=== PATIENT | female | born 1965 | race Caucasian/White ===

== ENCOUNTER 2018-07-16 17:36 | Observation (INO) | payer BC ==
[~2018-07-16 17:36] MED LIST: ISOVUE-370 76%-LOCM 1 ML ONE
[2018-07-16 18:33] LABS: #Basophils 0.1 thou/uL (0.0-0.2); #Eosinphils 0.1 thou/uL (0.0-0.7); #Lymphocytes 3.9 thou/uL (1.20-3.40); #Monocytes 0.7 thou/uL (0.11-0.59); #Neutrophils 5.9 thou/uL (1.40-6.50); %Basophils 1.2 % (0.0-1.0); %Eosinophils 1.4 % (0.0-10.0); %Lymphocytes 36.1 % (21.0-51.0); %Monocytes 6.4 % (0.0-10.0); Hemoglobin 16.5 g/dL (12.0-16.0); Mean Corpuscular HGB CONC 33.7 g/dL (32.0-36.0); Mean Corpuscular Hemoglobin 28.7 pg (27.0-31.0); Mean Corpuscular Volume 85.3 fL (78.0-98.0); Mean Platelet Volume 6.9 fL (7.4-10.4); Platelet Count 366 thou/uL (130-400); RBC Distribution Width 11.3 % (11.5-14.5); Red Blood Cell (RBC) Count 5.72 mill/uL (4.20-5.40); White Blood Cell (WBC) Count 10.7 thou/uL (4.8-10.8)
[2018-07-16 18:54] LABS: CKMB 0.5 ng/mL (0-6.6); Troponin I Less than 0.010 ng/mL (< 0.028)
[2018-07-16 18:55] LABS: ALT (SGPT) 25 U/L (8-55); AST (SGOT) 23 U/L (5-34); Albumin 4.4 g/dL (3.5-5.0); Alkaline Phosphatase 68 U/L (40-150); Anion Gap 15 mmol/L (10-20); BUN (Urea Nitrogen) 11 mg/dL (9.8-20.1); Bilirubin, Total 0.3 mg/dL (0.2-1.2); CK (CPK) 40 U/L (29-168); Calc. Creatinine Clearance 0 mL/min (70-130); Carbon Dioxide 25 mmol/L (22-29); Chloride 101 mmol/L (98-107); Estimated GFR-MDRD 58; Globulin 4.2 g/dL (2.4-3.5); Glucose 107 mg/dL (70-105); Potassium 4.5 mmol/L (3.5-5.1); Protein, Total 8.6 g/dL (6.0-8.3); Sodium 136 mmol/L (136-145)
--- NOTE | 2018-07-16 21:52 | CT ---
NONCONTRAST HEAD CT: 07/16/18 HISTORY: Altered mental status. Visual field abnormality. COMPARISON: None. FINDINGS: No parenchymal hemorrhage. No extra-axial hematoma. No midline shift. Basilar cisterns are patent. Br ain volume, age appropriate. Cortical pereira-white matter differentiation is preserved. Ventricles and sulci are patent and symmetric. Adequate aeration of the sinuses and mastoid air cells . Intact calvarium. IMPRESSION: No acute intracranial process. POS: [facility]
--- NOTE | 2018-07-16 21:57 | CT ---
CTA [place] OF [place] WITH 3D VOLUME RENDERING WITH CONTRAST 07/16/18 INDICATION: Visual disturbances. Altered mental status. History of migraine headaches. FINDINGS: The imaged FILIBERTO, MCA and TELEVISION SCRIPT WRITER bilaterally reveal no significant abnormality. The terminal ICA, bilater ally, are patent. Imaged vertebrobasilar system reveals no significant abnormality. IMPRESSION: Unremarkable [place] of [place] CTA examination. POS: [facility]
[2018-07-17 02:38] VITALS: BMI 27.8
[2018-07-17] MEDS ORDERED: hydrALAZINE 20 MG/ML VIAL SLOW IVP PRN (10:09)
--- NOTE | 2018-07-17 12:22 | ULT ---
BILATERAL CAROTID DUPLEX ULTRASOUND: DATE: 07/17/18 HISTORY: TIA. TECHNIQUE: [place] scale ultrasound with color flow and spectral Doppler imaging of the extracranial carotid artery systems performed. FINDINGS: There is a small amount of plaque formation in the right carotid bulb. The peak systolic velocity in the right ICA measures 85 cm/second with a systolic ratio of 1.13. The peak systolic velocity in the left ICA measures 87 cm/second with a systolic ratio of 1.07. Flow in both vertebral arteries remains antegrade. Incidental note is made of a 1.6 x 1.0 x 1.0 cm lymph node in the right neck. IMPRESSION: 1. No evidence of hemodynamically significant stenosis in either ICA. 2. Enlarged right cervical lymph node. POS: [facility]
--- NOTE | 2018-07-17 13:24 | MRI ---
MRI BRAIN WITHOUT CONTRAST: Date: 07/17/18 HISTORY: Visual disturbances, altered mental status, migraine headaches, TIA. FINDINGS: Correlation is made with the previous day's CT scan. No restricted diffusion is seen. No evidence of infarct, hemorrhage, midline shift, or abnormal extra -axial fluid collections are seen. The ventricular size is normal and the basilar cisterns are patent . No signal abnormalities are seen on the highly sensitive FLAIR images. No tonsillar herniation is s een. The visualized paranasal sinuses and mastoid air cells are well aerated. IMPRESSION: Normal exam. POS: [facility]
[2018-07-17 16:06] VITALS: BP 111/78; TEMP 98.4
--- NOTE | 2018-07-17 17:15 | HP ---
PRIMARY CARE PROVIDER: Michael Bernabe D.O. CHIEF COMPLAINT: Vision changes. HISTORY OF PRESENT ILLNESS: Ms. Almanza is a pleasant 53-year-old lady who was seen at [facility] on 07/17/2018. 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 She is followed by an wood piler for the [facility]. She also reports a history of migraine with aura, aura usually consists of flashing lights. She also reports having intact peripheral vision, but loss of central vision as part of her aura. Somet imes she has aura, but no headaches. At other times, she has aura with headaches. Two weeks ago, she had an episode where her vision was skewed. She describes it as pereira field at the top half of her vision and colored skewed vision in the bottom half. She reports that these episode s last very few seconds and she is unable to tell if it is in one eye or both eyes. She also reports feeling disoriented after the first episode and tried not to fall. She did not fall. She had a second episode 2 days ago. She went to see an edge banding machine offbearer yesterday and was reassured that everything was fine with her ophthalmologic exam. Arrangements are being made to obtain 2D echo cardiogram as part of stroke workup. Yesterday after seeing the edge banding machine offbearer, she went to eat din ner and had another episode. This lasted about 30 seconds. She came to the emergency room because s he was concerned about stroke. REVIEW OF SYSTEMS: All other systems reviewed and found to be negative. PAST MEDICAL HISTORY: Hypothyroidism, gastroesophageal reflux disease, gout. PAST SURGICAL HISTORY: Chula fundoplication for hiatal hernia, cholecystectomy, hysterectomy, and r ight knee surgery. SOCIAL HISTORY: The patient denies recreational drug use or tobacco use. Uses alcohol rarely. FAMILY HISTORY: Cerebrovascular accident and Parkinson's disease in her paternal grandmother as well as maternal aunt. ALLERGIES: CLAVULANIC ACID, MOXIFLOXACIN, SULFA, CEPHALOSPORINS, AMOXICILLIN, CECLOR, ERYTHROMYCIN B ASE, LEVOFLOXACIN and PENICILLIN. CURRENT MEDICATIONS: Bumetanide 1 mg daily, vitamin D3 5000 units daily, estradiol 0.1 mg transderma lly daily, fexofenadine 60 mg tablet daily, Flonase nasal spray, gabapentin 100 mg capsules, dose to be confirmed, liothyronine 5 mcg daily, magnesium 500 mg daily, omeprazole 20 mg daily, DHEA 25 mg da [place], spironolactone 100 mg daily, and vitamin B complex 100 mg daily. PHYSICAL EXAMINATION: GENERAL: On examination, Ms. Almanza is awake and alert, not in acute distress. VITAL SIGNS: Blood pressure is 111/73, pulse 98, respiratory rate 16, and oxygen saturation 98% on r oom air. She is afebrile. EYES: No scleral icterus. No conjunctival pallor. ENT: Moist mucosal membranes, no oropharyngeal erythema or exudates. NECK: Supple, nontender, trachea is midline. RESPIRATORY: Accessory muscles of breathing are not active. Chest wall movements are symmetric bila terally. LUNGS: Clear to auscultation without wheeze, rhonchi or crepitations. CARDIOVASCULAR: S1 and S2 are heard, regular. Peripheral pulses palpable. No carotid bruit, no per icardial rub. ABDOMEN: Soft, nontender, bowel sounds are heard, no hepatomegaly, no splenomegaly. NEUROLOGIC: Cranial nerves II-XII intact. Power is 5/5 in all 4 extremities. There are no focal mo tor or sensory deficits. Deep tendon reflexes are 2+, plantar reflexes downgoing bilaterally. SKIN: No rashes or subcutaneous nodules. LYMPHATIC: No cervical lymphadenopathy. PSYCHIATRIC: Normal mood, normal affect, patient is oriented to person, place, and time. IMAGING DATA AND LABORATORY DATA: Ms. Almanza' labs and investigations were reviewed. I reviewed her electrocardiogram, which shows sinus tachycardia, no ST changes to suggest an acute coronary syndrome . I also reviewed noncontrast CT scan of the brain, which does not show any bleed or obvious stroke. CT scan of [place] was unremarkable. She has normal white count, elevated hemoglobin of 1 6.5, normal platelet count, normal electrolytes, normal creatinine, elevated serum total protein of 8 .6, elevated globulin of 4.2, otherwise unremarkable liver profile and a TSH decreased at 0.0179. ASSESSMENT AND PLAN: Ms. Almanza is a pleasant 53-year-old lady who was seen at [facility] on 07/17/2018. Her problem list includes: 1. Vision changes: Etiology unclear, could be related to migraine. We will initiate stroke workup to rule out stroke and a consult Neurology for opinion and help with management. 2. Hypothyroidism: Patient's TSH is actually low. However, it is unclear whether she has a central hypothyroidism. We will advise her to follow up with her wood piler for further management. 3. Gastroesophageal reflux disease: Appears to be stable. 4. Gout: Appears to be stable. Many thanks for allowing me to participate in your patient's care. Please feel free to contact me wi th any questions or concerns. LEVEL OF RISK: High. LEVEL OF COMPLEXITY: High.
[2018-07-17] MEDS ORDERED: Estradiol 0.1mg/24 Hour Patch (Weekly) TD SCH (18:00)
--- NOTE | 2018-07-17 22:52 | CON ---
DATE OF CONSULTATION: 07/17/2018 CONSULTING PHYSICIAN: Hospitalist service. IMPRESSION: Migraine aura. PLAN: 1. Aspirin 81 mg per day. 2. The patient can be discharged home. HISTORY OF PRESENT ILLNESS: Ms. Almanza is a 53-year-old white female with a long history of migraine headaches for many years. She has only had migraine visual aura. These are usually constriction of the vision in the central region with some distortion peripherally. She had 3 episodes of a differen t type of vision alteration. She describes it as the lateral view, looked like the images were twist ing and the superior view appeared to have a great tone to it. This appeared to be in both eyes. It would last for only about 30 seconds and then resolves. She had an MRI of the brain done, which was normal. A carotid ultrasound does not show any extracranial stenosis. Her CTA of [place] was unremarkable as well. LABORATORY STUDIES: Including a CBC and a comprehensive metabolic panel were unremarkable. PAST MEDICAL HISTORY: She has a past history of prolactinoma that is being monitored. Past history is, otherwise, negative. ALLERGIES: CLAVULANIC ACID, MOXIFLOXACIN, and SULFA. SOCIAL HISTORY: She is . Does not smoke. FAMILY HISTORY: Noncontributory. REVIEW OF SYSTEMS: No history of any focal neurologic symptoms. PHYSICAL EXAMINATION: GENERAL: She is a well-nourished middle-aged woman in no distress. VITAL SIGNS: Blood pressure 111/78, pulse 101, respirations 16, temperature 98.4. HEENT: Pupils are equal. Conjunctivae clear. Oropharynx clear. NECK: Supple. EXTREMITIES: No cyanosis. NEUROLOGIC EXAM: She is alert and appropriate. Her exam is nonfocal. SUMMARY: Given the nature of the vision distortion, this would have to be for migraine rather than a nything ischemic. I have suggested that she start on 81 mg of aspirin due to a slight increased risk of stroke in middle-aged women with complex migraine. I would be happy to follow up with her in the office.
--- NOTE | 2018-07-18 02:53 | DIS ---
DATE OF ADMISSION: 07/17/2018 DATE OF DISCHARGE: 07/17/2018 PRIMARY CARE PROVIDER: Michael Bernabe D.O. DISCHARGE DIAGNOSES: 1. Migraine. 2. Cerebrovascular accident ruled out. 3. Low TSH. 4. Enlarged cervical lymph node. DISCHARGE MEDICATIONS: No change was made to Ms. Almanza preadmission home medications as dictated on my history and physical note dated 07/17/2018. HOSPITAL COURSE: Ms. Almanza is a pleasant, 53-year-old lady, who was admitted to [facility] on 07/17/2018 for ruling out acute ischemic cerebrovascular accident or TIA. She had M RI of the brain, which did not show any abnormality. She also had carotid Dopplers, which did not sh ow any hemodynamically significant stenosis in either ICA. She has an enlarged right cervical lymph node. She also has a decreased TSH level of 0.0179. She is advised to follow up with her endocrinol ogist for the same. Please refer to my history and physical note dated 07/17/2018 for further details regarding the circu mstances of the admission. She was seen by Neurology Service, Dr. Plasencia. She was diagnosed with migraine and has been cleared for discharge home. At the time of this dictation, 2D echocardiogram report is pending. She is advised to follow up with her primary care provider for the report. Many thanks for allowing me to participate in your patient's care. Please feel free to contact me wi th any questions or concerns. DISCHARGE DESTINATION: Home. Please note that patient also had an elevated hemoglobin of 16.5 during this hospitalization. If thi s is new, it will need to be rechecked and further workup as needed.
[2018-07-18] MEDS ORDERED: Non-Formulary Item 1 EACH (Prasterone (Dhea) [Dhea] 25 MG) PO SCH (09:00)
[2018-07-18] MEDS ORDERED: Magnesium Oxide 250 MG TAB PO SCH (09:00)
[2018-07-18] MEDS ORDERED: Spironolactone 100 MG TAB PO SCH (09:00)
[2018-07-18] MEDS ORDERED: Aspirin 325 mg Enteric Coated Tablet PO SCH (09:00)
[2018-07-18] MEDS ORDERED: Liothyronine Sodium 5 MCG TAB PO SCH (09:00)
[2018-07-18] MEDS ORDERED: Stress 600 With Zinc 1 TAB PO SCH (09:00)
[2018-07-18] MEDS ORDERED: Bumetanide 1 MG TAB PO SCH (09:00)
--- NOTE | 2018-07-19 14:04 | EKG ---
Test Reason : Blood Pressure : / mmHG Vent. Rate : 110 BPM Atrial Rate : 110 BPM P-R Int : 150 ms QRS Dur : 070 ms QT Int : 320 ms P-R-T Axes : 051 018 044 degrees QTc Int : 433 ms Sinus tachycardia Possible Left atrial enlargement Abnormal ECG Confirmed by ABIEL DURAN DO ([id number]), editor school photograph GABE HENRIQUEZ ([id number]) on 07/19/2018 2:03:41 PM Referred By: Confirmed By:ABIEL DURAN DO
== END 2018-07-17 18:13 | disposition home or self-care (01) ==
LOC: ERS 17:36 → 2SE 22:22
PROVIDERS: ADMIT Internal Medicine; ATTEND Internal Medicine
DX: G43.909 Migraine, unspecified, not intractable, without status migrainosus (principal); R59.0 Localized enlarged lymph nodes; Z79.82 Long term (current) use of aspirin; Z88.2 Allergy status to sulfonamides; Z88.1 Allergy status to other antibiotic agents
CPT/HCPCS: 36415; 70450; 70496; 70551; 80053; 82550; 82553; 84443; 84484; 85025; 90471; 90686; 93005; 93306; 93880; G0008; G0378

== ENCOUNTER 2018-07-20 16:05 | Emergency (ER) | payer BC ==
[2018-07-20 16:41] LABS: #Basophils 0.1 thou/uL (0.0-0.2); #Eosinphils 0.2 thou/uL (0.0-0.7); #Lymphocytes 3.6 thou/uL (1.20-3.40); #Monocytes 0.8 thou/uL (0.11-0.59); #Neutrophils 5.1 thou/uL (1.40-6.50); %Eosinophils 1.6 % (0.0-10.0); %Lymphocytes 37.4 % (21.0-51.0); %Monocytes 7.9 % (0.0-10.0); %Neutrophils 52.2 % (42.0-75.0); Hemoglobin 16.6 g/dL (12.0-16.0); Mean Corpuscular Hemoglobin 27.7 pg (27.0-31.0); Mean Corpuscular Volume 84.2 fL (78.0-98.0); Mean Platelet Volume 7.1 fL (7.4-10.4); Platelet Count 358 thou/uL (130-400); RBC Distribution Width 11.4 % (11.5-14.5); White Blood Cell (WBC) Count 9.7 thou/uL (4.8-10.8)
--- NOTE | 2018-07-20 16:43 | RAD ---
UPRIGHT FRONTAL CHEST RADIOGRAPH: 07/20/2018 HISTORY: Palpitations. COMPARISON: None. FINDINGS: The lungs are clear. The heart and mediastinal contours are unremarkable. IMPRESSION: No acute findings. POS: [facility]
[2018-07-20 16:54] LABS: ALT (SGPT) 34 U/L (8-55); AST (SGOT) 20 U/L (5-34); Albumin 4.6 g/dL (3.5-5.0); Alkaline Phosphatase 74 U/L (40-150); Anion Gap 13 mmol/L (10-20); BUN (Urea Nitrogen) 11 mg/dL (9.8-20.1); Bilirubin, Total 0.5 mg/dL (0.2-1.2); CK (CPK) 49 U/L (29-168); Calc. Creatinine Clearance 0 mL/min (70-130); Carbon Dioxide 28 mmol/L (22-29); Chloride 100 mmol/L (98-107); Estimated GFR-MDRD 68; Glucose 83 mg/dL (70-105); Magnesium 2.3 mg/dL (1.6-2.6); Potassium 3.7 mmol/L (3.5-5.1); Protein, Total 8.6 g/dL (6.0-8.3); Sodium 137 mmol/L (136-145)
[2018-07-20 16:58] LABS: CKMB 0.5 ng/mL (0-6.6); Troponin I Less than 0.010 ng/mL (< 0.028)
[2018-07-20 17:12] LABS: Free T4 (Free Thyroxine) 1.24 ng/dL (0.70-1.48); Thyroid Stimulating Hormone 0.1177 uIU/mL (0.35-4.94)
== END 2018-07-20 18:18 | disposition home or self-care (01) ==
LOC: ERS 16:05
DX: R00.0 Tachycardia, unspecified (principal); E03.9 Hypothyroidism, unspecified; K21.9 Gastro-esophageal reflux disease without esophagitis; Z79.899 Other long term (current) drug therapy
CPT/HCPCS: 71045; 80053; 82550; 82553; 83735; 84439; 84443; 84484; 85025; 85379; 93005; 96360

== ENCOUNTER 2018-07-21 10:27 | Outpatient (CLI) | payer BC | END 2018-07-21 10:28 | disposition home or self-care (01) | LOC: BICMAMMO 10:27 | PROVIDERS: ATTEND Obstetrics & Gynecology | DX: Z12.31 Encounter for screening mammogram for malignant neoplasm of breast (principal); Z80.3 Family history of malignant neoplasm of breast | CPT/HCPCS: 77063; 77067 ==

== ENCOUNTER 2018-07-22 13:04 | Outpatient (CLI) | payer BC ==
--- NOTE | 2018-07-22 15:05 | ULT ---
LEFT BREAST ULTRASOUND LIMITED: Date: 07/22/18 HISTORY: 53-year-old female presents for a new mammographic finding. FINDINGS: In the left breast, at the 5:30 position 2.0 cm from the nipple, there is a septated, thin-walled cys t measuring 0.6 x 0.7 x 0.8 cm, corresponding to the mammographic finding. IMPRESSION: BIRADS 2: Benign Finding(s) Continue annual follow-up screening mammograms. Benign, septated, thin-walled cyst in the 5:30 positi on left breast 2.0 cm from the nipple, accounting of the mammographic finding. POS: [facility]
== END 2018-07-22 13:05 | disposition home or self-care (01) ==
LOC: BICMAMMO 13:04
PROVIDERS: ATTEND Obstetrics & Gynecology
DX: N63.20 Unspecified lump in the left breast, unspecified quadrant (principal); N60.02 Solitary cyst of left breast; N63.14 Unspecified lump in the right breast, lower inner quadrant; Z80.3 Family history of malignant neoplasm of breast
CPT/HCPCS: G0279

== ENCOUNTER 2018-09-13 17:57 | Observation (INO) | payer BC ==
[2018-09-13 18:34] LABS: #Basophils 0.1 thou/uL (0.0-0.2); #Eosinphils 0.1 thou/uL (0.0-0.7); #Lymphocytes 4.1 thou/uL (1.20-3.40); #Monocytes 0.7 thou/uL (0.11-0.59); #Neutrophils 6.2 thou/uL (1.40-6.50); %Basophils 1.1 % (0.0-1.0); %Eosinophils 1.3 % (0.0-10.0); %Lymphocytes 36.6 % (21.0-51.0); Hemoglobin 15.1 g/dL (12.0-16.0); Mean Corpuscular HGB CONC 34.4 g/dL (32.0-36.0); Mean Corpuscular Hemoglobin 28.8 pg (27.0-31.0); Mean Corpuscular Volume 83.5 fL (78.0-98.0); Platelet Count 364 thou/uL (130-400); RBC Distribution Width 11.6 % (11.5-14.5); Red Blood Cell (RBC) Count 5.23 mill/uL (4.20-5.40); White Blood Cell (WBC) Count 11.2 thou/uL (4.8-10.8)
--- NOTE | 2018-09-13 18:36 | RAD ---
TWO VIEWS OF THE CHEST: 09/13/18 COMPARISON: None. HISTORY: Chest pain while grocery shopping. FINDINGS: Two views of the chest show normal sized cardiomediastinal silhouette. There is no evidence of consol idation, mass, or pleural effusion. The bones are unremarkable. IMPRESSION: No evidence of acute cardiopulmonary disease. POS: [facility]
[2018-09-13 18:55] LABS: ALT (SGPT) 24 U/L (8-55); AST (SGOT) 19 U/L (5-34); Albumin 4.4 g/dL (3.5-5.0); Alkaline Phosphatase 69 U/L (40-150); Anion Gap 13 mmol/L (10-20); BUN (Urea Nitrogen) 18 mg/dL (9.8-20.1); Bilirubin, Total 0.4 mg/dL (0.2-1.2); CK (CPK) 55 U/L (29-168); Calc. Creatinine Clearance 0 mL/min (70-130); Calcium 9.8 mg/dL (7.8-10.44); Carbon Dioxide 25 mmol/L (22-29); Chloride 102 mmol/L (98-107); Estimated GFR-MDRD 62; Globulin 3.5 g/dL (2.4-3.5); Glucose 95 mg/dL (70-105); Potassium 4.1 mmol/L (3.5-5.1); Protein, Total 7.9 g/dL (6.0-8.3); Sodium 136 mmol/L (136-145)
[2018-09-13 19:00] LABS: CKMB 0.7 ng/mL (0-6.6); Troponin I Less than 0.010 ng/mL (< 0.028)
[2018-09-13] MEDS ORDERED: Nitroglycerin 0.4 MG TAB (25 Tab Bottle) ONE (20:28)
[2018-09-13 20:51] LABS: Bilirubin Negative (Negative); Blood, Urine Negative (Negative); Clarity CLEAR (Clear); Glucose, Urine (Dipstick) Negative (Negative); Leukocyte Negative (Negative); Nitrite Negative (Negative); Protein, Urine (Dipstick) Negative (Neg-Trace); Specific Gravity, Urine 1.009 (1.002-1.036); Urobilinogen 0.2 mg/dL (0.2-1.0)
[2018-09-13 22:08] LABS: Troponin I Less than 0.010 ng/mL (< 0.028)
[2018-09-13] MEDS ORDERED: Sodium Chloride 0.9% 1,000 ML IV SCH (23:19)
[2018-09-13 23:21] VITALS: BMI 29.8
[2018-09-14] MEDS ORDERED: Ondansetron ODT 4 MG TAB PO PRN (00:27)
[2018-09-14] MEDS ORDERED: Bisacodyl 5 MG TAB PO PRN (00:27)
[2018-09-14] MEDS ORDERED: Ondansetron PF 4 MG/2 ML Vial IVP PRN (00:27)
[2018-09-14] MEDS ORDERED: Senokot S 8.6-50 MG TAB PO PRN (00:27)
[2018-09-14] MEDS ORDERED: Acetaminophen 325 MG TAB PO PRN (00:27)
[2018-09-14] MEDS ORDERED: Acetaminophen 650 MG Suppository PR PRN (00:27)
[2018-09-14] MEDS ORDERED: Guaifenesin DM 100-10/5 ML UDCUP PO PRN (00:27)
[2018-09-14] MEDS ORDERED: Non-Formulary Item 1 EACH (Ranitidine Hcl [Ranitidine Hcl] 300 MG) PO PRN (00:29)
[2018-09-14] MEDS ORDERED: Cyclobenzaprine 10 MG TAB PO PRN (00:29)
[2018-09-14] MEDS ORDERED: Fluticasone Propionate Nasal Spray 16 gm Bottle NASAL PRN (00:29)
[2018-09-14] MEDS ORDERED: Non-Formulary Item 1 EACH (Fexofenadine Hcl [Allegra Allergy] 60 MG) PO PRN (00:29)
[2018-09-14] MEDS ORDERED: Sodium Chloride 0.9% 1,000 ML IV SCH (00:30)
[2018-09-14] MEDS ORDERED: Loratadine 10 MG TAB PO PRN (00:48)
[2018-09-14 00:59] LABS: Troponin I Less than 0.010 ng/mL (< 0.028)
[2018-09-14 05:56] LABS: #Eosinphils 0.2 thou/uL (0.0-0.7); #Lymphocytes 4.2 thou/uL (1.20-3.40); #Monocytes 0.6 thou/uL (0.11-0.59); #Neutrophils 3.8 thou/uL (1.40-6.50); %Basophils 0.5 % (0.0-1.0); %Lymphocytes 47.9 % (21.0-51.0); %Monocytes 6.2 % (0.0-10.0); %Neutrophils 43.4 % (42.0-75.0); Hemoglobin 13.1 g/dL (12.0-16.0); Mean Corpuscular HGB CONC 33.1 g/dL (32.0-36.0); Mean Corpuscular Hemoglobin 28.3 pg (27.0-31.0); Mean Corpuscular Volume 85.4 fL (78.0-98.0); Platelet Count 305 thou/uL (130-400); RBC Distribution Width 11.7 % (11.5-14.5); Red Blood Cell (RBC) Count 4.65 mill/uL (4.20-5.40); White Blood Cell (WBC) Count 8.9 thou/uL (4.8-10.8)
[2018-09-14] MEDS ORDERED: Levothyroxine Sodium 125 MCG TAB PO SCH (06:00)
[2018-09-14 06:06] LABS: Anion Gap 9 mmol/L (10-20); BUN (Urea Nitrogen) 15 mg/dL (9.8-20.1); Calc. Creatinine Clearance 111 mL/min (70-130); Calcium 8.5 mg/dL (7.8-10.44); Carbon Dioxide 24 mmol/L (22-29); Chloride 110 mmol/L (98-107); Estimated GFR-MDRD 76; Glucose 87 mg/dL (70-105); Potassium 3.9 mmol/L (3.5-5.1); Sodium 139 mmol/L (136-145)
--- NOTE | 2018-09-14 07:15 | HP ---
CHIEF COMPLAINT: Chest pain. HISTORY OF PRESENT ILLNESS: This is a 53-year-old female with past medical history significant for GERD, hypothyroidism, gout, and presenting with chest pain. Per patient, chest pain started around her left neck and it radiated and localized on her chest. The patient states that during the time when she was having the pain, which was 3/10, pressure-like in nature, she became nauseous, diaphoretic, and she has had history of GERD in the past and the symptoms that she gets when she has GERD is so different from this one, so even though her chest pain was located right at the epigastric region and it was very similar to at the time when she had pancreatitis, this pain was just different and she felt like it was her heart. The patient states that she just came off a -day monitor, which was placed by Dr. Tejeda to check her heart rhythm. The patient states that during that time she was always notified about irregular heart rhythms and the patient has been scheduled to get a stress test on Saturday. However, the patient could not wait to get the stress test on Saturday because the patient is having this chest epigastric pain, which is making her very uncomfortable; therefore, it prompted her to come to the hospital to be evaluated. Of note, on 07/18/2018, the patient had an echo done, which showed left ventricular ejection fraction of 55% to 60% with a diastolic function that could not be assessed secondary to tachycardia. There was also a mild tricuspid regurg that was noted. The patient was admitted on 07/17/2018 for migraine headaches. REVIEW OF SYSTEMS: Positive for chest pain, nausea, otherwise as documented in the HPI, all other systems were reviewed and are negative. PAST MEDICAL HISTORY: 1. Hypothyroidism. 2. GERD. 3. Gout. PAST SURGICAL HISTORY: 1. The patient has Chula fundoplication for hiatal hernia. 2. Cholecystectomy. 3. Hysterectomy. 4. Right knee repair. FAMILY HISTORY: The patient stated that her dad had strokes and there was hypertension that runs through the family, but nobody in the family has heart issues. PSYCHIATRIC HISTORY: No previous psychiatric history. SOCIAL HISTORY: The patient denies illicit drug use, alcohol use, or tobacco use. ALLERGIES: AMOXICILLIN, AUGMENTIN, AVELOX, CEFACLOR, CEPHALOSPORINS, ERYTHROMYCIN, LEVAQUIN, PENICILLINS, SULFA DRUGS. CURRENT MEDICATIONS: 1. Levothyroxine mcg. 2. Liothyronine 5 mcg. 3. Spironolactone 100 mg. 4. Bumetanide 1 mg. 5. Flexeril 5 mg. 6. Metoprolol 25 mg. PHYSICAL EXAMINATION: VITAL SIGNS: Blood pressure is 110/78, pulse of 74, respiratory rate of 16, temperature 98.2, oxygen saturation 99%. GENERAL: The patient is alert, awake, oriented x3. Pleasant, lying in bed comfortably, able to speak in full sentences. HEENT: Normocephalic, atraumatic. Pupils are equal, round, and reactive to light. Extraocular movements are intact. No scleral icterus. No conjunctival pallor. Mucous membranes are moist. NECK: Trachea is midline. Full range of motion. Supple. No tenderness. LUNGS: Clear to auscultation bilaterally. No wheezing, no rales, no rhonchi appreciated. CARDIAC: Positive S1, S2. Regular rate and rhythm. No murmurs, no gallops, no rubs appreciated. EXTREMITIES: The patient has 5/5 upper extremity strength, and 5/5 lower extremity strength. No edema noted. Good pulses bilaterally. NEUROLOGIC: Cranial nerves 2 through 12 grossly intact. No neurologic deficits noted. SKIN: Warm, dry, and intact. PSYCHIATRIC: The patient is alert, awake, and oriented x3. Normal affect. IMAGING: EKG shows sinus rhythm with a rate of 81. Chest x-ray, negative. LABORATORY DATA: WBC 11.2, hemoglobin 15.1, hematocrit 43.7, platelets 364. D-dimer is less than 0.27. Sodium is , potassium is 4.1, chloride is 102, carbon dioxide of 25, anion gap of 13, BUN is 18, creatinine is 0.94. GFR of 62. Troponin is less than 0.010. Urinalysis is negative. ASSESSMENT AND PLAN: This is a 53-year-old female presenting with; 1. Chest pain, rule out acute coronary syndrome. At this point, we have ordered for stress test. We have consulted Cardiology. We will follow up on their recommendations. The patient recently had an echo done, so we are not going to order another echo. 2. Hypothyroidism. At this point, we will get TSH and we will follow up on the TSH levels. We will continue the patient on her home medications. 3. Arrhythmias. At this point, we are going to check the patient's TSH and the patient will undergo stress test, and we are going to follow up with Cardiology regarding their recommendations. We will continue the patient on current management and her home medications. 4. Gastroesophageal reflux disease. We will continue the patient on medication to help the patient with her history of gastroesophageal reflux disease. 5. History of gout, currently stable. We will monitor the patient. 6. Fluid retention, etiology unclear. The patient takes spironolactone 100. We will continue the patient on her home dose of spironolactone. 7. Deep venous thrombosis/gastrointestinal prophylaxis. Job ID: [id number]
[2018-09-14] MEDS ORDERED: Famotidine/PF 20 mg/2ml Vial SLOW IVP SCH (09:00)
[2018-09-14] MEDS ORDERED: Bumetanide 1 MG TAB PO SCH (09:00)
[2018-09-14] MEDS ORDERED: Famotidine 20 MG TAB PO SCH (09:00)
[2018-09-14] MEDS ORDERED: Spironolactone 100 MG TAB PO SCH (09:00)
[2018-09-14] MEDS ORDERED: Liothyronine Sodium 5 MCG TAB PO SCH (09:00)
[2018-09-14] MEDS ORDERED: Magnesium Oxide 400 MG TAB PO SCH (09:00)
[2018-09-14] MEDS ORDERED: Enoxaparin Sodium 40 MG/0.4 ML SYRINGE SC SCH (09:00)
[2018-09-14] MEDS ORDERED: ADENOSINE 60 MG/20 ML VIAL ONE (09:10)
--- NOTE | 2018-09-14 11:28 | NM ---
MYOCARDIAL PERFUSION EVALUATION: INDICATIONS: History of chest pain, hypothyroidism, and gastroesophageal reflux. RADIOPHARMACEUTICAL: Technetium 99m sestamibi 30 millicuries IV with stress. Technetium 99m sestamibi 10.5 millicuries IV with rest. FINDINGS: When comparing the stress/rest images, no reversible myocardial perfusion defect is evident. There a re mild fixed defects involving the anterior wall and apex, on both stress and rest images. There is normal wall motion and thickening. LVEF is estimated at 75%. IMPRESSION: 1. No definite scintigraphic evidence of reversible myocardial ischemia. 2. Fixed area of diminished activity involving the distal anterior wall and apex on both the stress and rest images, likely related to overlying soft tissue attenuation. 3. Estimated left ventricular ejection fraction 75%. POS: [facility]
--- NOTE | 2018-09-14 14:58 | CT ---
CTA THORAX UTILIZING IV CONTRAST WITH 3D REFORMATTED IMAGING AND PE PROTOCOL: FINDINGS: No central or segmental pulmonary embolus is evident. The heart and great vessels are unremarkable. There is a small hiatal hernia. The lungs are clear. No pleural effusion is evident. There is a small cyst seen within the peripheral right hepatic lobe. The adrenal glands are normal a ppearing. The gallbladder is surgically absent. No acute osseous abnormality is evident. IMPRESSION: No evidence of acute pulmonary embolus. POS: [facility]
[2018-09-14 15:28] VITALS: BP 113/74; TEMP 97.4
[2018-09-14] MEDS ORDERED: Iopamidol 370 76% 100 ML VIAL ONE (16:39)
--- NOTE | 2018-09-15 07:51 | DIS ---
DATE OF ADMISSION: 09/13/2018 DATE OF DISCHARGE: 09/14/2018 PRIMARY CARE PROVIDER: Michael Bernabe, DISCHARGE DIAGNOSES: 1. Chest pain. 2. Probable musculoskeletal etiology for chest pain. CONDITION OF PATIENT ON THE DAY OF DISCHARGE: Stable. I assessed Ms. Almanza on the day of discharge. She denies any chest pain. Vital signs are stable. S1 and S2 are heard, regular. Lungs are clear to auscultation bilaterally. DISCHARGE MEDICATIONS: No change was made to her preadmission home medications, which consisted of; 1. Estradiol 0.1 mg transdermally every 7 days. 2. Bumetanide 1 mg daily. 3. Vitamin D3 at 5000 units 2 times a day. 4. Flexeril 10 mg at bedtime as needed. 5. Fexofenadine 60 mg daily as needed. 6. Flonase nasal spray as needed. 7. Levothyroxine 125 mcg daily. 8. Liothyronine 5 mcg 2 times a day. 9. Magnesium 800 mg daily. 10. Metoprolol succinate 25 mg every evening. 11. Ranitidine 300 mg as needed. 12. Spironolactone 100 mg daily. HOSPITAL COURSE: Ms. Almanza is a pleasant 53-year-old lady, who was admitted to [facility] on September 13, 2018, for chest pain. Please refer to Dr. Stovall's history and physical note for further details. She underwent nuclear stress test on September 14, 2018. There was no definite scintigraphic evidence of reversible myocardial ischemia. She had fixed area of diminished activity involving the distal anterior wall and apex on the both the stress and rest images, likely related to overlying soft-tissue attenuation. Left ventricular ejection fraction was estimated to be 75%. She also had CT angiogram of the chest, which did not show any evidence of acute pulmonary embolus. She had a small cyst within the peripheral right hepatic lobe. Her chest pain resolved following admission and she is being discharged home in a stable condition. She is advised to follow up with her primary care provider and lace burn out tender as outpatient. Many thanks for allowing me to participate in your patient's care. Please feel free to contact me with any questions or concerns. On the day of discharge, she has white count of 8900, hemoglobin 13.1, platelet count 305,000. Normal sodium, normal potassium, and normal creatinine. Her TSH was normal during this hospitalization. Troponins were normal. Urinalysis was normal. DISCHARGE DESTINATION: Home. Job ID: [id number]
== END 2018-09-14 17:13 | disposition home or self-care (01) ==
LOC: ERS 17:57 → 2SW 21:02
PROVIDERS: ADMIT Internal Medicine; ATTEND Internal Medicine
DX: R07.89 Other chest pain (principal); K21.9 Gastro-esophageal reflux disease without esophagitis; E03.9 Hypothyroidism, unspecified; M10.9 Gout, unspecified; R60.9 Edema, unspecified; I49.9 Cardiac arrhythmia, unspecified; Z79.899 Other long term (current) drug therapy; Z88.0 Allergy status to penicillin; Z88.1 Allergy status to other antibiotic agents; Z88.2 Allergy status to sulfonamides
CPT/HCPCS: 36415; 71046; 71275; 78452; 80048; 80053; 81003; 82553; 83880; 84443; 84484; 85025; 85379; 87086; 93005; 93017; 96360; 96361; 96372; A9500; G0378; J0153; J1650

== ENCOUNTER 2018-09-14 23:44 | Observation (INO) | payer BC ==
[2018-09-15 00:56] LABS: #Basophils 0.1 thou/uL (0.0-0.2); #Eosinphils 0.2 thou/uL (0.0-0.7); #Lymphocytes 4.6 thou/uL (1.20-3.40); #Monocytes 0.7 thou/uL (0.11-0.59); #Neutrophils 5.5 thou/uL (1.40-6.50); %Basophils 0.8 % (0.0-1.0); %Monocytes 6.6 % (0.0-10.0); %Neutrophils 49.6 % (42.0-75.0); Hemoglobin 14.8 g/dL (12.0-16.0); Mean Corpuscular HGB CONC 33.2 g/dL (32.0-36.0); Mean Corpuscular Hemoglobin 27.6 pg (27.0-31.0); Mean Corpuscular Volume 83.2 fL (78.0-98.0); Mean Platelet Volume 7.3 fL (7.4-10.4); Platelet Count 353 thou/uL (130-400); RBC Distribution Width 11.6 % (11.5-14.5); Red Blood Cell (RBC) Count 5.35 mill/uL (4.20-5.40); White Blood Cell (WBC) Count 11.1 thou/uL (4.8-10.8)
[2018-09-15 01:21] LABS: CKMB 0.5 ng/mL (0-6.6); Troponin I Less than 0.010 ng/mL (< 0.028)
[2018-09-15 01:22] LABS: ALT (SGPT) 22 U/L (8-55); AST (SGOT) 21 U/L (5-34); Albumin 4.1 g/dL (3.5-5.0); Alkaline Phosphatase 66 U/L (40-150); Anion Gap 15 mmol/L (10-20); BUN (Urea Nitrogen) 18 mg/dL (9.8-20.1); Bilirubin, Total 0.2 mg/dL (0.2-1.2); CK (CPK) 67 U/L (29-168); Calc. Creatinine Clearance 0 mL/min (70-130); Calcium 9.9 mg/dL (7.8-10.44); Carbon Dioxide 23 mmol/L (22-29); Chloride 104 mmol/L (98-107); Estimated GFR-MDRD 52; Globulin 3.7 g/dL (2.4-3.5); Glucose 98 mg/dL (70-105); Potassium 3.7 mmol/L (3.5-5.1); Protein, Total 7.8 g/dL (6.0-8.3); Sodium 138 mmol/L (136-145)
[2018-09-15] MEDS ORDERED: Ketorolac Tromethamine 30 MG/ML VIAL ONE (01:34)
[2018-09-15] MEDS ORDERED: Mag-Al 1200 mg/1200 mg/30 ML UDCUP ONE (01:35)
[2018-09-15] MEDS ORDERED: Lidocaine Viscous Sol 2% 15 ml UD Cup ONE (01:35)
[2018-09-15 04:14] LABS: Troponin I Less than 0.010 ng/mL (< 0.028)
[2018-09-15 07:14] LABS: Troponin I Less than 0.010 ng/mL (< 0.028)
--- NOTE | 2018-09-15 08:08 | RAD ---
2 VIEWS CHEST: Date: 09/15/18 COMPARISON: 09/13/18. HISTORY: Chest pain. FINDINGS: No pneumothorax, pleural fluid, focal consolidation, or alveolar edema. Heart and mediastinal contour s unremarkable. Clips in right upper quadrant suggest prior cholecystectomy. IMPRESSION: No acute findings. POS: [facility]
[2018-09-15 08:11] VITALS: BP 110/73; TEMP 98.4
[2018-09-15 08:15] VITALS: BMI 27.8
[2018-09-15] MEDS ORDERED: Acetaminophen 500 MG TAB PO PRN (09:17)
[2018-09-15] MEDS ORDERED: Bisacodyl 5 MG TAB PO PRN (09:17)
[2018-09-15] MEDS ORDERED: Nitroglycerin 0.4 MG TAB (25 Tab Bottle) SL PRN (09:17)
[2018-09-15] MEDS ORDERED: Acetaminophen 325 MG TAB PO PRN (09:17)
[2018-09-15] MEDS ORDERED: Ondansetron PF 4 MG/2 ML Vial IVP PRN (09:17)
[2018-09-15] MEDS ORDERED: hydrALAZINE 20 MG/ML VIAL SLOW IVP PRN (09:17)
[2018-09-15] MEDS ORDERED: cloNIDine 0.1 MG TAB PO PRN (09:17)
[2018-09-15] MEDS ORDERED: Senokot S 8.6-50 MG TAB PO PRN ×2 (09:17)
[2018-09-15] MEDS ORDERED: Pantoprazole 40 MG VIAL IVP SCH (09:30)
[2018-09-15] MEDS ORDERED: Enoxaparin Sodium 40 MG/0.4 ML SYRINGE SC SCH (09:30)
--- NOTE | 2018-09-16 06:29 | SS ---
DATE OF ADMISSION: 09/15/2018 DATE OF DISCHARGE: 09/15/2018 DISCHARGE DISPOSITION: Home. DISCHARGE DIAGNOSES: Dizziness and nausea of unspecified reason, resolved. SECONDARY DISCHARGE DIAGNOSES: 1. History of hypothyroidism. 2. History of arrhythmias with normal readings of 21 in the heart monitor as an outpatient. 3. Gastroesophageal reflux disease. 4. History of hiatal hernia. 5. History of gout. DISCHARGE MEDICATIONS: Resume home medications as yesterday's discharge summary. No changes were made. Please see discharge summary dictated by Dr. Dutta yesterday. SHORT HOSPITAL COURSE: Ms. Almanza is a 53-year-old female with past medical history of hypothyroidism and GERD, who presented to the hospital with complaints of not feeling well, some dizziness and lightheadedness and some chest tightness. Her symptoms as per her report have started in July of this year. Please note that the patient was admitted to our facility on 07/15/2018 that was only yesterday and underwent a shorter workup for cardiac causes. She had a nuclear medicine stress test, which was negative for any ischemia and showed a preserved ejection fraction of over 70%. She also had a fixed area of diminished activity involving the distal anterior wall and apex on both the stress and rest images likely due to overlying soft tissue attenuation. She also underwent a CT angio of the thorax yesterday and it was negative for any pulmonary embolism or infiltrates. She was discharged yesterday by Dr. Dutta and please see the full discharge summary dictated by him for details. She came back to the emergency room within a few hours with repetition of her symptoms. She says that her symptoms mainly consist of feeling like that she is going to pass out associated with some nausea and dizziness. She does not complain of chest pain per se. She reports that these symptoms are ongoing since July of this year. She was found to be not having any arrhythmias on the secured entrance monitor requested by Dr. Tejeda in the outpatient setting a few weeks ago. She also has had a brain MRI and transthoracic echocardiogram and carotid Doppler ultrasound in July of this year when she was having these symptoms. All of that workup was also rather unremarkable. She reports that she has been started on metoprolol about 1 week ago and has been tolerating it so far. Her blood pressure and heart rate have improved and the lowest they have been in the 60s with the heart rate and systolic blood pressure in the hundred teens. She reports that she was not given the metoprolol for the last 2 days, but she did take it last night after she was discharged to home. She does not feel that her symptoms are related to the metoprolol. She reports that these symptoms have been ongoing even before she was started on it and she was having these symptoms when she was not even given these versus took it. In the emergency room today, she was found to be hemodynamically stable on presentation with the blood pressure of 135/68, heart rate of 88, afebrile. Her workup including a 12-lead EKG and chest x-ray was once again rather unimpressive and within normal limits. Her serum chemistries have been unremarkable. CBC was within normal limits and serial cardiac enzymes were negative x3. PAST MEDICAL HISTORY: Please see admission H and P dictated by Dr. Stovall yesterday on 09/14/2018 and it remains the same. PAST SURGICAL HISTORY: Please see admission H and P dictated by Dr. Stovall yesjesday on 09/14/2018 and it remains the same. FAMILY HISTORY: Please see admission H and P dictated by Dr. Stovall yesjesday on 09/14/2018 and it remains the same. SOCIAL HISTORY: Please see admission H and P dictated by Dr. Stovall yesjesday on 09/14/2018 and it remains the same. MEDICATIONS: Home medication remains the same as admission medication yesterday. Please see the admission H and P and discharge summary for details. ALLERGIES: PER THE HPI DICTATED YESTERDAY. REVIEW OF SYSTEMS: The patient's symptoms have resolved and she is feeling very well and is eager to go home at this time. A 12-point review of systems is done, it is negative except for those mentioned in the history and physical. LABORATORY DATA: CBC is unremarkable. Serum chemistry is within normal limits. Troponin less than 0.010 x3. CK-MB normal. Chest x-ray by my review has no evidence to suggest any pleural effusion, edema or infiltrate. A 12-lead EKG by my review shows normal sinus rhythm at 87 beats per minute and normal ST segment and T waves. PHYSICAL EXAMINATION: VITAL SIGNS: Upon presentation; blood pressure 135/68, most recent blood pressure 104/66, pulse of 67, respirations 14, temperature 98.1, and saturating 95% on room air. GENERAL: In no acute distress. Awake, alert, and oriented x3. HEENT: Mucous membrane is moist and pink. No oropharyngeal exudate or erythema. Head is normocephalic and atraumatic. Pupils are equal and reactive to light and accommodation. Extraocular movements intact. NECK: Supple without any lymphadenopathy, JVD, or bruits. CHEST: Clear to auscultation without any wheezing, rales, or rhonchi. HEART: Rate and rhythm are regular without any murmurs, rubs, or gallops. ABDOMEN: Soft, nontender, and nondistended with positive bowel sounds. EXTREMITIES: Free of any cyanosis, clubbing, or edema. NEUROLOGIC: Nonfocal. SKIN: Free of any rashes or bruises. Feels warm and dry to touch. PSYCHIATRIC: Normal affect. IMPRESSION AND PLAN: Nonspecific dizziness and near syncope. At this time, the etiology of her symptoms are not clear. I have a feeling that her symptoms are largely vasovagal given the fact that she has a hiatal hernia. On my examination, she does not have any epigastric tenderness. I have encouraged her to stop the ranitidine and start taking her omeprazole, which she takes on and off. She is encouraged to take the omeprazole twice a day for at least 1 week. She has had a thorough cardiac and urological workup in the last 2 months including brain MRI, echocardiogram, carotid Doppler ultrasound and CT angio to rule out pulmonary embolism and negative cardiac stress test. I did discuss her case with the gas well pumper, Dr. Tejeda on phone, who has graciously agreed to see her in the clinic tomorrow. At this time, her symptom etiology is less likely cardiac in nature and because it has resolved and she is hemodynamically stable, she will be discharged to home. She will follow with Dr. Tejeda in the outpatient setting to discuss cardiac catheterization as necessary. Discharge plan was discussed with the patient and her , who verbalized understanding and are eager to go home. She will resume home medications and add omeprazole twice a day for now. Job ID: [id number]
[2018-09-16] MEDS ORDERED: Bumetanide 1 MG TAB PO SCH (09:00)
--- NOTE | 2018-09-20 13:02 | EKG ---
Test Reason : CHEST PAIN Blood Pressure : / mmHG Vent. Rate : 087 BPM Atrial Rate : 087 BPM P-R Int : 150 ms QRS Dur : 078 ms QT Int : 366 ms P-R-T Axes : 043 011 049 degrees QTc Int : 440 ms Normal sinus rhythm Possible Left atrial enlargement Cannot rule out Anterior infarct , age undetermined Abnormal ECG Confirmed by LEIF COFFMAN ([id number]), makeup editor ADRIENNE WAN ([id number]) on 09/20/2018 1:02:16 PM Referred By: Confirmed By:LEIF COFFMAN
== END 2018-09-15 10:56 | disposition home or self-care (01) ==
LOC: ERS 23:44 → ERHOLD 09-15 02:06
PROVIDERS: ADMIT Internal Medicine; ATTEND Internal Medicine
DX: R42 Dizziness and giddiness (principal); E03.9 Hypothyroidism, unspecified; K21.9 Gastro-esophageal reflux disease without esophagitis; M10.9 Gout, unspecified; K44.9 Diaphragmatic hernia without obstruction or gangrene; Z88.1 Allergy status to other antibiotic agents; Z88.2 Allergy status to sulfonamides; Z88.0 Allergy status to penicillin; Z79.818 Long term (current) use of other agents affecting estrogen receptors and estrogen levels; Z79.899 Other long term (current) drug therapy
CPT/HCPCS: 36415; 71046; 80053; 82550; 82553; 84484; 85025; 93005; 94760; G0378; J1885

== ENCOUNTER 2019-04-14 08:02 | Outpatient (CLI) | payer BC ==
[~2019-04-14 08:02] MED LIST changes: -ISOVUE-370 76%-LOCM 1 ML ONE; +Iopamidol 370 76% 100 ML VIAL ONE
--- NOTE | 2019-04-14 08:56 | CT ---
EXAM: CT ABDOMEN AND PELVIS HISTORY: Abdominal pain. Distention. COMPARISON: None. Procedure: Multiple contiguous axial images were obtained and a CT of the abdomen and pelvis with IV contrast. C oronal reformats were performed. FINDINGS: Lower Chest: within normal limits. Vessels: Normal caliber aorta. Heart: Normal heart size. No significant pericardial fluid. Abdomen: Portal vein:Patent Gallbladder: Surgically absent Liver: Hypodensity in the posterior segment of the right hepatic lobe compatible with a 1.3 x 1.4 cm cyst. Pancreas: within normal limits. 6 mm hypodensity in the proximal pancreatic body may represent a foca l area of atrophy. Spleen: within normal limits. Adrenals: within normal limits. Kidneys: Symmetric enhancement. No obstructive uropathy. Peritoneum: No ascites or free air, no fluid collection. Bowel: Unremarkable gastric mucosa. Small hiatal hernia is noted. Multiple normal caliber small bowel loops. Ileocecal junction is normal. Normal caliber appendix. Scattered fecal material and air in nondistended, nondilated colon Mesentery and Retroperitoneum: No enlarged mesenteric or retroperitoneal lymph nodes. Abdominal Wall: within normal limits. Pelvis: Reproductive Organs: Surgically absent uterus. Pelvis: within normal limits. Bladder: within normal limits. Bones: There are no osteolytic or osteoblastic lesions. IMPRESSION: 1. No evidence of bowel obstruction 2. Right hepatic lobe cyst 3. Normal caliber appendix. 4. No evidence of inflammation with regards to the pancreas.
== END 2019-04-14 08:03 | disposition home or self-care (01) ==
LOC: BICCT 08:02
PROVIDERS: ATTEND Physician Assistant Medical
DX: K86.81 Exocrine pancreatic insufficiency (principal); R10.9 Unspecified abdominal pain; R14.0 Abdominal distension (gaseous); R23.2 Flushing; K76.89 Other specified diseases of liver
CPT/HCPCS: 74177; Q9967

== ENCOUNTER 2021-12-05 08:19 | Outpatient (CLI) | payer BC | END 2021-12-05 08:20 | disposition home or self-care (01) | LOC: BICMAMMO 08:19 | PROVIDERS: ATTEND Internal Medicine Endocrinology, Diabetes & Metabolism | DX: Z13.820 Encounter for screening for osteoporosis (principal); E34.9 Endocrine disorder, unspecified; M85.89 Other specified disorders of bone density and structure, multiple sites | CPT/HCPCS: 77080 ==

== ENCOUNTER 2023-12-27 09:42 | Emergency (ER) | payer BC ==
[2023-12-27 10:25] LABS: #Eosinphils 0.2 thou/uL (0.0-0.7); #Monocytes 0.7 thou/uL (0.11-0.59); #Neutrophils 5.8 thou/uL (1.40-6.50); %Basophils 0.5 % (0.0-1.0); %Eosinophils 2.4 % (0.0-10.0); %Lymphocytes 13.4 % (21.0-51.0); %Monocytes 8.9 % (0.0-10.0); %Neutrophils 74.4 % (42.0-75.0); Hematocrit 46.2 % (36.0-47.0); Hemoglobin 15.6 g/dL (12.0-16.0); Mean Corpuscular HGB CONC 33.8 g/dL (32.0-36.0); Mean Corpuscular Hemoglobin 28.6 pg (27.0-31.0); Mean Corpuscular Volume 84.6 fl (78.0-98.0); Mean Platelet Volume 9.6 fL (7.4-10.4); Platelet Count 276 10x3/uL (130-400); RBC Distribution Width 12.9 % (11.5-14.5); Red Blood Cell (RBC) Count 5.46 mill/uL (4.20-5.40); White Blood Cell (WBC) Count 7.8 10x3/uL (4.8-10.8)
[2023-12-27 10:39] LABS: PTT 28.2 sec (22.9-36.1); Prothrombin Time 13.2 sec (12.0-14.7)
[2023-12-27 10:51] LABS: ALT (SGPT) 34 U/L (8-55); AST (SGOT) 26 U/L (5-34); Albumin 4.2 g/dL (3.5-5.0); Alkaline Phosphatase 61 U/L (40-110); Anion Gap 14 mmol/L (10-20); BUN (Urea Nitrogen) 10 mg/dL (9.8-20.1); Calc. Creatinine Clearance 0 mL/min (70-130); Calcium 9.4 mg/dL (7.8-10.44); Carbon Dioxide 22 mmol/L (22-29); Chloride 106 mmol/L (98-107); Estimated GFR 75; Globulin 3.4 g/dL (2.4-3.5); Glucose 95 mg/dL (70-105); Lipase 33 U/L (8-78); Magnesium 2.2 mg/dL (1.6-2.6); Potassium 4.2 mmol/L (3.5-5.1); Protein, Total 7.6 g/dL (6.0-8.3); Sodium 138 mmol/L (136-145)
[2023-12-27 10:59] LABS: Troponin I Less than 0.010 ng/mL (< 0.028)
== END 2023-12-27 13:30 | disposition home or self-care (01) ==
LOC: ERS 09:42
DX: R00.2 Palpitations (principal); E03.9 Hypothyroidism, unspecified; K21.9 Gastro-esophageal reflux disease without esophagitis; R00.0 Tachycardia, unspecified; E21.3 Hyperparathyroidism, unspecified; E87.70 Fluid overload, unspecified; Z79.899 Other long term (current) drug therapy
CPT/HCPCS: 71045; 71275; 80053; 83690; 83735; 84439; 84443; 84484; 85025; 85610; 85730; 93005